=== PATIENT | male | born 1990 | race Caucasian/White ===

== ENCOUNTER 2019-08-06 21:06 | Emergency (ER) | payer OTHER ==
[~2019-08-06] VITALS: Ht 188 cm; Wt 83.9 kg
[2019-08-06 22:45] VITALS: BP 128/74
== END 2019-08-06 22:46 | disposition home or self-care (01) ==
LOC: ER 21:06
DX: S01.512A Laceration without foreign body of oral cavity, initial encounter (principal); R56.9 Unspecified convulsions; W18.39XA Other fall on same level, initial encounter; Y92.89 Other specified places as the place of occurrence of the external cause; Y93.89 Activity, other specified; Y99.0 Civilian activity done for income or pay